=== PATIENT | female | born 1980 | race Caucasian/White ===

== ENCOUNTER 2017-01-29 05:50 | Day surgery (SDC) | payer OTHER ==
--- NOTE | 2017-01-23 19:43 | HP ---
EILEEN MONTALVO [id number] DATE OF ADMISSION: 01/29/2017 PREOPERATIVE DIAGNOSIS: Ongoing menorrhagia and severe dysmenorrhea. PLANNED PROCEDURE: Vaginal hysterectomy. HISTORY OF PRESENT ILLNESS: Eileen Montalvo is a 36-year-old G-3, P-0, 2-1-2 who has been seeing me for over one year now because of irregular and sometimes very heavy vaginal bleeding. The patient has a history of a prior diagnosis of endometriosis, but on her surgery in March of 2016, no definite endometriosis was seen laparoscopically. There were some adhesions around her ovaries and in the cul-de-sac that were filmy, but no worrisome findings. At the time of that surgery in March of 2016, the patient's Mirena IUD was removed, a laparoscopic tubal sterilization was done with Filshie clips and a hysteroscopy D&C was done, followed by an endometrial ablation. The patient had an uneventful recovery after that, but unfortunately she has continued to have periods. They are more regular, coming about every three to four weeks, but they are still very heavy at times. She also continued to have very severe cramping before, during and after her periods. She continues to have some chronic pelvic pain. The hormones are all out of her system now, but she never had any significant relief on Depo-Provera or on control pills or with the Mirena IUD or the other interventions that were tried. The options have been discussed with Eileen and the patient is requesting that we proceed with a vaginal hysterectomy. The plan is to leave both ovaries in place since there was no confirmation of endometriosis, though the patient gives permission to have one or both ovaries removed if appropriate at the time of the surgery. Eileen knows that this will certainly control her bleeding, but it may not completely resolve her pelvic pain. She does have chronic low back pain and it is hopeful that that will improve after this surgery. The risks and possible complications have been discussed and her questions have been answered. The patient does give permission for a blood transfusion if necessary and for antibiotics. She does understand that there are certain inherent risks to this surgery. There is also a possibility that we will not be able to accomplish the hysterectomy vaginally and will need to change to a transabdominal approach. The consent has been reviewed in detail and the patient has been given the usual preoperative instructions. She is being admitted on the morning of 01/29/2017 for this surgery. The patient's recent medical history has been complicated also by a diagnosis of hyperparathyroidism. She has been seeing an behavior interventionist. It seems that she has been diagnosed as hyperthyroid a few times since puberty. Both times she responded to PTU and then became euthyroid and did not need medication. She has had several bouts with nephrolithiasis and this was thought to be due to the high calcium causing the development of calcium renal stones. Currently she is taking approximately 4,000 units of vitamin D every day. She is not on any other medications at this time. She is being followed by an behavior interventionist carefully. She has been told to go ahead with this surgery at this time. Eileen also suffers with an intermittent anxiety disorder. She has not been on medications for this recently, but was given some Xanax 0.5 mg. She will take half a tablet only if needed or for sleep prior to the surgery. PAST SENIOR CYBER SECURITY ANALYST HISTORY: The patient began having periods at age 13. They were always heavy, miserable and somewhat irregular. In 1997 she started on a control pill, and this did help some with her dysmenorrhea. Her first laparoscopy was in 2003 when she was 12-bnriy-kit and it was then that she was diagnosed with endometriosis. In fact, apparently the surgeon said that it was one of the worst cases that he had ever seen. The patient did have Depo-Lupron for a while after that. She also has had three pregnancies since then. When she is , her symptoms of pelvic pain seem to be lessened. The patient had a first trimester miscarriage in 2004. In August of 2006, she had a 35 week vaginal delivery. She has been on Clomid several times, but never conceived again for seven more years, and then shortly after adopting a child she discovered that she was again. Right now she has five children under the age of ten at home. Her youngest two are both approximately 3-years-old. The patient has a history of knee surgery when she was in college. She had a laparoscopic cholecystectomy in 2006. She had a laparoscopy for infertility in 2008. She had another laparoscopy in 2011 because of heavy periods and worsening pain, and then her most recent laparoscopy was in March of 2016. The patient also has recently had a root canal about two weeks ago and she was on a course of amoxicillin after that. SOCIAL HISTORY: The patient is , in a stable and mutually monogamous relationship. She has two children of her own and three adopted children. She has a very busy household. She moved here from [place] in September of 2014. 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 FAMILY HISTORY: Her family history is mostly unknown because this patient was adopted as a child. ALLERGIES: The patient claims to be allergic to morphine. It seems that when she had her knee surgery in college she was given morphine. Her family was told that she developed severe hives, she quit breathing and she apparently had some classic symptoms of anaphylaxis and was treated with epinephrine. She has never had morphine since then that she knows of. . PHYSICAL EXAMINATION: VITAL SIGNS: Blood pressure 120/90. Pulse and respirations normal. Weight 257 pounds. GENERAL: Eileen is a very pleasant verbal woman who is tall and has broad shoulders. She is constantly surrounded by multiple children. HEENT: Normal. NECK: No thyromegaly. LUNGS: Clear to auscultation. No CVAT. HEART: Regular rate and rhythm. SKIN: Shows no worrisome lesions. ABDOMEN: Soft and round. Normal bowel sounds. Nontender. No inguinal adenopathy. Laparoscopy scars are all well-healed. PELVIC: Normal external genitalia. There is no abnormal discharge. The cervix is high and somewhat posterior. The uterus itself is hard to palpate well because of her body habitus, but it does seem somewhat mobile and not enlarged. There is no adnexal mass, but the ovaries were not distinctly palpable. IMPRESSION: Eileen is a 36-year-old who has completed her childbearing. She is very definite that she does not need anymore. Despite an endometrial ablation, she has continued to have heavy, crampy and miserable periods about every three to four weeks. She is suffering with chronic pelvic pain and low back pain, which is all worse during her period. She is requesting a more aggressive intervention. The plan is to admit her on 01/29/2017 for a vaginal hysterectomy.
[2017-01-29] MEDS ORDERED: LIDOCAINE 1% 2 ML VIAL ID PRN (06:34)
[2017-01-29] MEDS ORDERED: LACTATED RINGERS 1,000 ML IV SCH ×2 (06:34→08:15)
[2017-01-29] MEDS ORDERED: CEFAZOLIN SODIUM 2 GRAM DUPLEX 2 G in Premix (D5W) 50 ml 1 EACH IV PRN (06:34)
[2017-01-29] MEDS ORDERED: CEFAZOLIN SODIUM 2 GRAM PREMIX 100 ML IV ONE (06:36)
[2017-01-29] MEDS ORDERED: FENTANYL 100 MCG/2 ML VIAL ONE ×5 (06:38→10:52)
[2017-01-29] MEDS ORDERED: MIDAZOLAM HCL 1 MG/ML 2ML VIAL ONE ×2 (06:39→07:28)
[2017-01-29] MEDS ORDERED: VASOPRESSIN 20 UNITS/ML VIAL ONE (06:59)
[2017-01-29] MEDS ORDERED: MORPHINE SULFATE (DURAMORPH) 1 MG/ML 10ML AMP ONE (07:00)
[2017-01-29] MEDS ORDERED: LIDOCAINE 2% (MULTI DOSE) 10 ML VIAL ONE (07:57)
[2017-01-29] MEDS ORDERED: PROPOFOL 40 ML IV ONE (07:57)
[2017-01-29] MEDS ORDERED: HYDROMORPHONE HCL 1 MG/ML SYRINGE IV PRN ×2 (08:02→11:10)
[2017-01-29] MEDS ORDERED: NALOXONE HCL 0.4 MG/ML VIAL IV PRN (08:02)
[2017-01-29] MEDS ORDERED: ATROPINE SULFATE 0.4 MG/1 ML VIAL IV PRN (08:02)
[2017-01-29] MEDS ORDERED: ONDANSETRON 4 MG/2ML 2 ML VIAL IV PRN ×3 (08:02→11:27)
[2017-01-29] MEDS ORDERED: PROMETHAZINE HCL 25 MG/ML VIAL IM PRN (08:02)
[2017-01-29] MEDS ORDERED: PROPOFOL 20 ML IV ONE ×5 (08:22→09:53)
[2017-01-29] MEDS ORDERED: HYDROMORPHONE HCL 2 MG/ML SYRINGE ONE (09:38)
[2017-01-29] MEDS ORDERED: ONDANSETRON 4 MG/2ML 2 ML VIAL ONE (09:40)
[2017-01-29] MEDS ORDERED: DEXAMETHASONE SOD PHOS 4 MG/1 ML VIAL ONE (09:42)
[2017-01-29] MEDS: FENTANYL 100 MCG/2 ML VIAL IV PRN ×4 (10:36→11:05)
--- NOTE | 2017-01-29 10:40 | PCMBPN ---
Brief Post Op Note: Date of Procedure: 01/29/17 Start Time: 07:58 Preoperative Diagnosis: 1. menometrorrhagia 2. dysmenorrhea Postoperative Diagnosis: 1. Same Procedure: Total vaginal hysterectomy Surgeon: Aparna Ariza Assist:Augusta Arenas MD and Darnell Anesthesia: Spinal/general combination Findings: thickened uterosacral ligaments, mobile uterus of normal size and shape but quite soft; normal tubes and ovaries. Both Filshie clips in place and removed without difficulty. Minimal anterior relaxation but mid vaginal posterior prolapse. Condition: Good Complications: none IV Fluids: 1400 mLs of LR Urine Output: Callejas placed at end of case. Lesvia yellow urine with no blood. Estimated Blood Loss: 350 mLs Tourniquet Time: N/A Specimens: uterus and 2 filshie clips Implants: none Drains: N/A
[2017-01-29] MEDS ORDERED: ACETAMINOPHEN 325 MG TABLET PO PRN ×2 (11:10→11:26)
[2017-01-29] MEDS ORDERED: KETOROLAC TROMETHAMINE 30 MG/ML 1 ML VIAL IV SCH (11:10)
[2017-01-29] MEDS ORDERED: MAGNESIUM HYDROXIDE 30 ML UDCUP PO PRN ×2 (11:10→11:27)
[2017-01-29] MEDS ORDERED: IBUPROFEN 800 MG TABLET PO SCH (11:10)
[2017-01-29] MEDS ORDERED: D5LR 1,000 ML IV SCH (11:10)
[2017-01-29] MEDS ORDERED: BISACODYL 10 MG SUP PR PRN ×2 (11:10→11:26)
[2017-01-29] MEDS ORDERED: MAGNESIUM HYDROXIDE/AL HYDROX 30 ML UDCUP PO PRN ×2 (11:10→11:27)
[2017-01-29] MEDS ORDERED: PROMETHAZINE HCL 25 MG TABLET PO PRN ×2 (11:10→11:27)
[2017-01-29] MEDS ORDERED: OXYCODONE HCL 5 MG TABLET PO PRN ×2 (11:10→11:27)
[2017-01-29] MEDS ORDERED: MENTHOL/CETYLPYRD 1 EACH LOZENGE PO PRN ×2 (11:10→11:26)
[2017-01-29] MEDS ORDERED: DOCUSATE SODIUM 100 MG CAPSULE PO PRN ×2 (11:10→11:26)
[2017-01-29] MEDS ORDERED: MAG HYDROX/AL HYDROX/SIMETH 30 ML UDCUP PO PRN ×2 (11:10→11:27)
[2017-01-29] MEDS ORDERED: OXYCODONE/ACETAMINOPHEN 5/325 MG TABLET PO PRN ×2 (11:10→11:27)
[2017-01-29] MEDS ORDERED: DIPHENHYDRAMINE HCL 50 MG/1 ML VIAL IV PRN (11:10)
[2017-01-29] MEDS ORDERED: BLISTEX LIPSTICK 1 EACH TP PRN ×2 (11:10→11:26)
[2017-01-29] MEDS ORDERED: HYDROMORPHONE HCL 1 MG/ML SYRINGE ONE (11:45)
[2017-01-29] MEDS: DIPHENHYDRAMINE HCL 50 MG/1 ML VIAL IV PRN ×2 (11:54→17:36)
[2017-01-29] MEDS: HYDROMORPHONE HCL 1 MG/ML SYRINGE IV PRN ×3 (11:54→17:04)
[2017-01-29] MEDS: KETOROLAC TROMETHAMINE 30 MG/ML 1 ML VIAL IV SCH ×2 (11:55→19:25)
[2017-01-29 12:49] VITALS: BMI 38.8
[2017-01-29] MEDS: D5LR 1,000 ML IV SCH ×2 (14:48→22:27)
[2017-01-29] MEDS: IBUPROFEN 800 MG TABLET PO SCH ×2 (17:05→19:23)
--- NOTE | 2017-01-29 20:03 | PDOC36 ---
Provider Note Subject: Post-op check Note: S: Pt is sore but OK. Mostly some crampiness low and in front. Emesis x 1 after motrin on an empty stomach. Pt now tolerating regular diet. O: VS normal Color good, alert and talkative Abd soft +BS non tender Vag pack removed, minimal blood just soaked with saline from OR Adq urine output, clear Imp: Stable post op Vag hyst; doing well. Pt encouraged to transition to PO pain meds, dc dilaudid. If pt can get up and walk without difficulty, anusha will be dc'd Plan: Routine care.
[2017-01-29 23:20] VITALS: BP 113/54
--- NOTE | 2017-02-04 14:21 | SURGPATH ---
[facility] [address] [place] [id number] Patient Name: EILEEN RAPHAEL MR#: [id number] : 1980 Gender: F Specimen #: [id number] Collected: 01/29/2017 Received: 02/01/2017 Reported: 02/02/2017 Submitting Phys: BITA TOLEDO Copy To Phys: SHERIF HEDRICK [facility] Clinical History / Pre-Operative Diagnosis: SEVERE DYSMENORRHEA; EXCESSIVE BLEEDING Specimen Source / Surgical Procedure Performed: UTERUS AND CERVIX AND FILSHIE CLIPS X2 Interpretation: UTERUS AND CERVIX, HYSTERECTOMY: - ENDOMETRIOSIS OF THE SEROSAL SURFACE - BENIGN PROLIFERATIVE ENDOMETRIUM - MYOMETRIUM WITH NO DIAGNOSTIC ABNORMALITY - CERVIX WITH NO DIAGNOSTIC ABNORMALITY - FILSHIE CLIPS GROSSLY IDENTIFIED Electronically Signed Out Shivani Gore M.D. Gross Description: The specimen is received in a formalin filled container labeled with the patient's name and "uterus, cervix and two Filshie clips". A 119 g, intact uterus and cervix is 9.0 x 5.5 x 4.5 cm. The burkett serosa has attached fibrous adhesions and a 1 cm posterior subserosal nodule. The ectocervix is glistening and burkett with areas of granularity surrounding a patent os. The endocervical canal is patent. The endometrial cavity is stenotic. The endometrium is flat, scar, pale chen and thinned to 0.1 cm. The dense burkett myometrium is thickened to 2.5 cm and is without nodule or induration. Separate in the specimen container are two metallic ligation clips. Summary of sections: A-serosa B-anterior and posterior cervix C and D-anterior endomyometrium E and F-posterior endomyometrium Velia Maradiaga Microscopic Description: Sections from the serosal surface show islands of endometrial glands and stroma. The cervix is free of dysplasia. There is proliferative type endometrium without hyperplasia or neoplasia. No plasma cells are seen within the stroma. The myometrium is unremarkable. 1: [id number] N94.4
== END 2017-01-29 11:11 | disposition home or self-care (01) ==
LOC: OR 05:50 → SDC 05:50 → UNDOADMIN 05:50 → MS 11:10 → SDC 11:11 → EDSTATUS 11:25
PROVIDERS: ATTEND Obstetrics & Gynecology
PROC: 0UT97ZZ Resection of Uterus, Via Natural or Artificial Opening (ICD-10-PCS; principal; 2017-01-29)
PROC: 0UTC7ZZ Resection of Cervix, Via Natural or Artificial Opening (ICD-10-PCS; 2017-01-29)
DX: N92.1 Excessive and frequent menstruation with irregular cycle (principal); N94.6 Dysmenorrhea, unspecified; N80.0 Endometriosis of uterus
CPT/HCPCS: 86901; 86850 ×3; 58260; J1200; J1170 ×5; J3010 ×5; J1100; A9270 ×5; J1885; J2250 ×2; J2405 ×2; J2001; J0690